=== PATIENT | male | born 1990 | race Hispanic/Latino ===

== ENCOUNTER 2018-06-11 11:35 | Emergency (ER) | payer SELFPAY ==
[2018-06-11 11:38] VITALS: BMI 30.8
[2018-06-11] MEDS ORDERED: Albuterol-Ipratrop 3 mg / 0.5 (3 ml) UD INH STA (12:39)
[2018-06-11] MEDS ORDERED: Promethazine/Cod 6.25mg-10mg/5ml Syr UD PO STA (12:40)
[2018-06-11] MEDS ORDERED: Promethazine/Cod 6.25mg-10mg/5ml Syr UD ONE (12:59)
[2018-06-11] MEDS ORDERED: Albuterol-Ipratrop 3 mg / 0.5 (3 ml) UD ONE (12:59)
--- NOTE | 2018-06-11 13:02 | ED PDOC ---
HPI: CCC, URI, Sore Throat Time Seen by Provider: 06/11/18 12:30 Chief Complaint (Nursing): Chest Pain Chief Complaint (Provider): Cough History Per: Patient History/Exam Limitations: no limitations Onset/Duration Of Symptoms: Days (> 1 week) Current Symptoms Are (Timing): Still Present Associated Symptoms: Chills, Cough, Sputum. denies: Fever, Sore Throat Additional Complaint(s): 28 year old male with a history of asthma presents to the ED with cough, body aches and congestion for over a week associated with bloody sputum for the last 3 days. Patient reports he coughs very often and has started to produce pink sputum. He develops mild chest pain after he coughs. He used his nebulizer prior to arrival because he was wheezing since last night. He denies antibiotic use, fever, leg pain or swelling and throat pain. PMD: Dr. Amrit Rodriguez Past Medical History Reviewed: Historical Data, Nursing Documentation, Vital Signs Vital Signs: Last Vital Signs Temp 98.5 F 06/11/18 18:26 Pulse 88 06/11/18 18:26 Resp 18 06/11/18 18:26 BP 127/74 06/11/18 18:26 Pulse Ox 97 06/11/18 18:26 - Medical History PMH: Asthma, GERD Denies: Depression - Surgical History Surgical History: No Surg Hx - Family History Family History: States: CAD - Social History Current smoker - smoking cessation education provided: No - Home Medications Home Medications: Ambulatory Orders Medication Instructions Recorded Albuterol HFA [Ventolin HFA 90 2 puff IH [id number] #1 inh 06/11/18 mcg/actuation (8 g)] Albuterol/Ipratropium [Duoneb 3 3 ml IH Q4 PRN #20 neb 06/11/18 MG/3 Ml-0.5 MG/3 Ml 3 Ml] Azithromycin [Z-Juan] 250 mg PO ASDIR #6 tab 06/11/18 Prednisone 50 mg PO DAILY #5 tablet 06/11/18 - Allergies Allergies/Adverse Reactions: Allergies Allergy/AdvReac Type Severity Reaction Status Date / Time TUNA Allergy RASH Uncoded 08/05/13 11:48 Review of Systems ROS Statement: Except As Marked, All Systems Reviewed And Found Negative Constitutional: Negative for: Fever ENT: Positive for: Nose Congestion. Negative for: Throat Pain Respiratory: Positive for: Cough, Sputum (bloody for the last 3 days ) Musculoskeletal: Negative for: Leg Pain Physical Exam - Reviewed Nursing Documentation Reviewed: Yes Vital Signs Reviewed: Yes - Physical Exam Appears: Positive for: No Acute Distress (comfortable ) Head Exam: Positive for: ATRAUMATIC Skin: Positive for: Normal Color, Warm, Dry Eye Exam: Positive for: EOMI, Normal appearance, PERRL ENT: Positive for: Normal ENT Inspection Neck: Positive for: Normal, Painless ROM, Supple Cardiovascular/Chest: Positive for: Regular Rate, Rhythm. Negative for: Murmur Respiratory: Positive for: Normal Breath Sounds, Wheezing (occasional wheeze bilateral) Gastrointestinal/Abdominal: Positive for: Normal Exam, Soft. Negative for: Tenderness Extremity: Positive for: Normal ROM. Negative for: Deformity Neurologic/Psych: Positive for: Alert, Oriented (x 3). Negative for: Motor/ Sensory Deficits - Laboratory Results Result Diagrams: 06/11/18 12:50 06/11/18 12:50 - ECG O2 Sat by Pulse Oximetry: 95 (RA) Pulse Ox Interpretation: Normal - Progress Re-evaluation Time: 17:35 Condition: Re-examined, Improved Nebulizer Treatments/Peak Flow - Duonebs Number of Bronchodilator Doses given?: 1 - Steroid Treatment Steroid: IV - Clinical Response Clinical Response: Improved Medical Decision Making Medical Decision Makin:38 Impression; wheezing, dyspnea and hemoptysis Differential diagnoses include but are not limited to: asthma exacerbation, acute bronchitis, pneumonia and rule out PE Initial Plan: --EKG --BMP --Troponin I --CBC --Chest x-ray --Duoneb 3 ml INH --Phenergan oral syrup 5 ml PO --Solumedrol 125 mg IVP --Peak flow pre/ post Chest x-ray --reveals left lower lobe infiltrate 14:17 --CTA Chest PE Protocol Time: 1648 --CT chest FINDINGS: PULMONARY ARTERIES: Unremarkable. No pulmonary embolism. AORTA: No acute findings. No thoracic aortic aneurysm. LUNGS: There is a lingula infiltrate is minimal involvement of the more cephalad subsegments of the left upper lobe as well. Right lung appears clear. No central airway lesion appreciable. PLEURAL SPACES: Unremarkable. No effusion or pneumothorax. HEART: Unremarkable. No cardiomegaly. No significant pericardial effusion. LYMPH NODES: No lymphadenopathy. BONES, CHEST WALL: Unremarkable. No fracture or destructive lesion OTHER FINDINGS: Unremarkable. IMPRESSION: 1. No CT evidence of pulmonary embolus. 2. Lingula infiltrate. No pleural effusion or significant lymphadenopathy at this time. No right sided pulmonary pathology appreciable. Findings are concordant with chest radiograph appearance 06/11/2018. Scribe Attestation: Documented by Priyanka Lundberg, acting as a scribe for Sofi Perry MD Provider Scribe Attestation: All medical record entries made by the Scribe were at my direction and personally dictated by me. I have reviewed the chart and agree that the record accurately reflects my personal performance of the history, physical exam, medical decision making, and the department course for this patient. I have also personally directed, reviewed, and agree with the discharge instructions and disposition. Disposition - Clinical Impression Clinical Impression: Pneumonia, Asthma exacerbation - Patient ED Disposition Is Patient to be Admitted: No Doctor Will See Patient In The: Office Counseled Patient/Family Regarding: Studies Performed, Diagnosis, Need For Followup - Disposition Referrals: Amrit Rodriguez DO [Family Provider] - Disposition: Routine/Home Disposition Time: 17:39 Condition: GOOD Additional Instructions: Take your medications as instructed. Follow up with your PCP in 2-3 days. Return for worsening. TIANNA JENSEN, thank you for letting us take care of you today. Your provider was Sofi Reed MD and you were treated for Pneumonia and Asthma. The emergency medical care you received today was directed at your acute symptoms. If you were prescribed any medication, please fill it and take as directed. It may take several days for your symptoms to resolve. Return to the Emergency Department if your symptoms worsen, do not improve, or if you have any other problems. Please contact your doctor or call one of the physicians/clinics you have been referred to that are listed on the Patient Visit Information form that is included in your discharge packet. Bring any paperwork you were given at discharge with you along with any medications you are taking to your follow up visit. Our treatment cannot replace ongoing medical care by a primary care provider outside of the emergency department. Thank you for allowing the [facility] team to be part of your care today. If you had an X-Ray or CT scan: A Radiologist will review the ED reading if any change in treatment is needed we will contact you. If you had a blood, urine, or wound culture: It will take several days for the results, if any change in treatment is needed we will contact you. Prescriptions: Albuterol HFA [Ventolin HFA 90 mcg/actuation (8 g)] 2 puff IH [id number] #1 inh Albuterol/Ipratropium [Duoneb 3 MG/3 Ml-0.5 MG/3 Ml 3 Ml] 3 ml IH Q4 PRN #20 neb PRN Reason: Wheezing Azithromycin [Z-Juan] 250 mg PO ASDIR #6 tab Prednisone 50 mg PO DAILY #5 tablet Instructions: Pneumonia in Adults, Asthma in Adults Forms: [facility] ED School/Work Excuse
[2018-06-11 13:09] LABS: BASO % 0.2 % (0.0-2.0); EOS # 0.2 K/uL (0.0-0.7); EOS % 2.2 % (0.0-4.0); HEMOGLOBIN 13.8 g/dL (12.0-18.0); LYMPH # 1.3 K/uL (1.0-4.3); LYMPH % 14.4 % (20.0-40.0); MEAN CELL VOLUME 88.7 fl (80.0-94.0); MEAN CORPUSCULAR HEMOGLOBIN 30.3 pg (27.0-31.0); MEAN CORPUSCULAR HGB CONC 34.1 g/dL (33.0-37.0); MONO # 0.6 K/uL (0.0-0.8); MONO % 6.1 % (0.0-10.0); NEUT # 7.1 K/uL (1.8-7.0); NEUT % 77.1 % (50.0-75.0); RBC 4.57 Mil/uL (4.40-5.90); RED CELL DISTRIBUTION WIDTH 12.3 % (11.5-14.5); WHITE BLOOD COUNT 9.2 K/uL (4.8-10.8)
[2018-06-11 13:28] LABS: BLOOD UREA NITROGEN 10 mg/dl (9-20); CALCIUM 9.4 mg/dL (8.4-10.2); GFR AFRICAN-AMERICAN > 60; GFR NON-AFRICAN AMERICAN > 60
--- NOTE | 2018-06-11 14:35 | RAD ---
HISTORY: COMPARISON: No prior. TECHNIQUE: Chest PA and lateral FINDINGS: LINES AND TUBES: None. LUNG AND PLEURA: The lungs are well inflated. The right lung is clear. There is airspace disease in the left lower lobe. No pleural effusion or pneumothorax. HEART AND MEDIASTINUM: The heart is not enlarged. The hilar and mediastinal contours are within normal limits. SKELETAL STRUCTURES: The bony structures are within normal limits for the patient's age. VISUALIZED UPPER ABDOMEN: Normal. OTHER FINDINGS: None. IMPRESSION: Findings are concerning for left lower lobe pneumonia. Follow-up after medical management is recommended to ensure complete resolution.
[2018-06-11] MEDS ORDERED: Azithromycin 500 MG in Sodium Chloride 0.9% 250 ML IVPB STA (15:14)
--- NOTE | 2018-06-11 15:19 | CARD ---
APPROVED REPORT Date of service: 06/11/2018 EKG Measurement Heart [id number] <Conclusion> Normal sinus rhythm Possible Left atrial enlargement Borderline ECG
[2018-06-11] MEDS ORDERED: Iodixanol 320 MG/ML 100 ML BOTTLE IV ONE (15:21)
[2018-06-11] MEDS ORDERED: Sodium Chloride 0.9% 50 ML IV ONE (15:21)
[2018-06-11] MEDS ORDERED: cefTRIAXone (Rocephin) 1 gm Inj ONE (15:30)
[2018-06-11 15:45] LABS: VENOUS BLOOD GAS BASE EXCESS 1.7 mmol/L (0.0-2.0); VENOUS BLOOD GAS PCO2 48 mmHg (40-60); VENOUS BLOOD GAS PO2 31 mm/Hg (30-55); VENOUS BLOOD PH 7.37 (7.32-7.43)
--- NOTE | 2018-06-11 16:51 | CT ---
Date of service: 06/11/2018 PROCEDURE: CT Chest with contrast (Pulmonary Angiogram) HISTORY: chest pain COMPARISON: None available. TECHNIQUE: Axial computed tomography images were obtained of the chest in the pulmonary arterial phase of enhancement. Coronal and sagittal reformatted images were created and reviewed. Intravenous contrast dose: Visipaque 320, 95 cc Radiation dose: Total exam DLP = 363.74 mGy-cm. This CT exam was performed using one or more of the following dose reduction techniques: Automated exposure control, adjustment of the mA and/or kV according to patient size, and/or use of iterative reconstruction technique. FINDINGS: PULMONARY ARTERIES: Unremarkable. No pulmonary embolism. AORTA: No acute findings. No thoracic aortic aneurysm. LUNGS: There is a lingula infiltrate is minimal involvement of the more cephalad subsegments of the left upper lobe as well. Right lung appears clear. No central airway lesion appreciable. PLEURAL SPACES: Unremarkable. No effusion or pneumothorax. HEART: Unremarkable. No cardiomegaly. No significant pericardial effusion. LYMPH NODES: No lymphadenopathy. BONES, CHEST WALL: Unremarkable. No fracture or destructive lesion OTHER FINDINGS: Unremarkable. IMPRESSION: 1. No CT evidence of pulmonary embolus. 2. Lingula infiltrate. No pleural effusion or significant lymphadenopathy at this time. No right sided pulmonary pathology appreciable. Findings are concordant with chest radiograph appearance 06/11/2018.
[2018-06-11] MEDS ORDERED: Azithromycin 500 MG IV IVPB ONE (17:09)
[2018-06-11 18:26] VITALS: BP 127/74; PULSE 88; RESP 18; TEMP 98.5
[2018-06-13 20:16] VITALS: O2SAT 95
== END 2018-06-11 19:05 | disposition home or self-care (01) ==
LOC: H.ER 11:35
DX: J18.9 Pneumonia, unspecified organism (principal); J45.901 Unspecified asthma with (acute) exacerbation; Z82.49 Family history of ischemic heart disease and other diseases of the circulatory system
CPT/HCPCS: 71046; 71275; 80048; 82803; 84484; 85025; 87040; 93005; 96365; 96367; 96375; 99285; J0456; J0696; J2930; Q9967